=== PATIENT | male | born 1940 | race Caucasian/White ===

== ENCOUNTER 2018-08-21 23:15 | Emergency (ER) | payer MEDICARE ==
[~2018-08-21] VITALS: Ht 180.3 cm; Wt 86.4 kg
[~2018-08-21 23:15] MED LIST: ASPIRIN E.C. 8181 MG PO; LAMICTAL 25MG T25 MG PO; MEVACOR 20M20 MG/TAB PO; NIASPAN 500MG500 MG PO; NORCO 325 MG-51 TAB PO; NORVASC 10MG10 MG PO; PROCARDIA XL 3030 MG PO
[2018-08-21 23:20] VITALS: TEMP 98.2
[2018-08-22 00:22] LABS: ALANINE AMINOTRANSFERASE 25 U/L (21-72); ALBUMIN 4.1 gm/dL (3.5-5.0); ALKALINE PHOSPHATASE 71 U/L (50-136); ANION GAP 7 mmol/L (7-16); AST,SGOT 28 U/L (15-37); BASO # 0.1 (0.0-0.2); BILIRUBIN,TOTAL 0.6 mg/dL (0.0-1.0); BLOOD UREA NITROGEN 19 mg/dL (9-20); CALCIUM 9.9 mg/dL (8.4-10.2); CARBON DIOXIDE 30 mmol/L (22-30); CHLORIDE 99 mmol/L (98-107); CREATININE, serum 1.28 mg/dL (0.66-1.25); EOS # 0.3 (0.0-0.7); EOS % 4.3 % (0-4.0); GLUCOSE 110 mg/dL (74-106); GRAN # 2.5 (1.4-6.5); GRAN % 35.1 % (42.2-75.2); HEMATOCRIT 42.2 % (42.0-52.0); HEMOGLOBIN 14.8 g/dl (13.5-18.0); LYMPH # 3.4 (1.2-3.4); LYMPH % 47.6 % (20.0-51.0); MEAN CELL VOLUME 98 fl (80.0-100.0); MEAN CORPUSCULAR HEMOGLOBIN 34 pg (27.0-31.0); MEAN CORPUSCULAR HGB CONC 35 g/dl (33.0-37.0); MEAN PLATELET VOLUME 8.1 fl (7.4-10.4); MONO # 0.8 (0.1-0.6); MONO % 11.6 % (1.7-9.3); PLATELET COUNT 266 K/mm3 (130-400); POTASSIUM 3.9 mmol/L (3.4-5.0); RED BLOOD COUNT 4.31 M/mm3 (4.20-5.60); REDCELL DISTRIBUTION WIDTH-CV 12.5 % (11.5-14.5); SODIUM 137 mmol/L (137-145); TOTAL PROTEIN 7.4 gm/dL (6.4-8.2)
[2018-08-22 00:38] LABS: PROLACTIN 26.3 ng/mL (3.7-17.9); TROPONIN-I < 0.012 ng/mL (0.000-0.034)
[2018-08-22] MEDS ORDERED: LAMICTAL 25MG T25 MG PO (01:20)
[2018-08-22 01:28] LABS: COLLECTION METHOD CLEAN CATCH
[2018-08-22 01:39] LABS: MUCOUS Present /lpf; PH 6 (5-8); SQUAMOUS EPITHELIAL 0-2 /hpf; URINE APPEARANCE Clear; URINE BACTERIA Rare /hpf; URINE BILIRUBIN Negative (NEGATIVE); URINE BLOOD Negative (NEGATIVE); URINE COLOR Yellow; URINE GLUCOSE Negative (NEGATIVE); URINE KETONE Negative (NEGATIVE); URINE LEUKOCYTE ESTERASE Negative (NEGATIVE); URINE NITRATE Negative (NEGATIVE); URINE PROTEIN(semi-quant) Negative (NEGATIVE); URINE RBC 0-2 /hpf; URINE UROBILINOGEN Negative (NEGATIVE); URINE WBC 0-2 /hpf
[2018-08-22 01:56] VITALS: BP 149/82; PULSE 64
== END 2018-08-22 01:57 | disposition home or self-care (01) ==
LOC: COL.ER 23:15
PROVIDERS: Emergency Medicine
DX: S01.81XA Laceration without foreign body of other part of head, initial encounter (principal); S01.111A Laceration without foreign body of right eyelid and periocular area, initial encounter; G40.909 Epilepsy, unspecified, not intractable, without status epilepticus; I10 Essential (primary) hypertension; E78.5 Hyperlipidemia, unspecified; F17.210 Nicotine dependence, cigarettes, uncomplicated; Z23 Encounter for immunization; Z98.890 Other specified postprocedural states; Z79.82 Long term (current) use of aspirin; W19.XXXA Unspecified fall, initial encounter; Y92.009 Unspecified place in unspecified non-institutional (private) residence as the place of occurrence of the external cause